=== PATIENT | male | born 1985 | race Caucasian/White ===

== ENCOUNTER 2024-12-05 19:02 | Emergency (ER) | payer OTHER, SELFPAY ==
[2024-12-05 19:09] VITALS: BP 149/98
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
== END 2024-12-05 22:23 | disposition home or self-care (01) ==
LOC: EMR 19:02
PROVIDERS: EMERGENCY PHYSICIAN Emergency Medicine; FAMILY PHYSICIAN Physician Assistant
DX: S80.01XA Contusion of right knee, initial encounter (principal); V49.9XXA Car occupant (driver) (passenger) injured in unspecified traffic accident, initial encounter; I10 Essential (primary) hypertension; Z86.2 Personal history of diseases of the blood and blood-forming organs and certain disorders involving the immune mechanism; Z79.01 Long term (current) use of anticoagulants; Z87.891 Personal history of nicotine dependence
CPT/HCPCS: 99283; 29505; 73564

== ENCOUNTER 2025-05-15 21:08 | Emergency (ER) | payer OTHER, SELFPAY ==
[2025-05-15 21:11] VITALS: BP 127/90
--- NOTE | 2025-05-15 23:48 | ED.GENMED ---
History of Present Illness
General
Chief Complaint: Skin Surface Trauma
Source: patient
Exam Limitations: none
Time Seen by Provider: 05/15/25 22:58
Nursing documentation reviewed up to this point in time: agreed with
History of Present Illness
History of Present Illness:
Note:
CHIEF COMPLAINT(S)
Laceration to the hand.
HISTORY OF PRESENT ILLNESS
The patient is a 39-year-old male with pmh of GERD, clotting disorder/PE on eliquis, ADHD, who presents with a laceration to the finger. The injury occurred while the patient was applying force to remove a hitch from the back of the car. He
described it as being stuck, causing his hand to snag. The patient reports that there was a lot of bleeding at the time but now he is comfortable and pain free. Currently, the patient does not report significant pain, but experiences a tingling
sensation intermittently which seems to have resolved. He notes having pressure applied to the site, which did not cause discomfort, implying that any significant pain was likely mitigated. The patient describes a past experience where stitches were
required after a similar hand injury. He did not fall. He denies wrist pain, elbow pain. He received a tetanus shot within the past 5 years.
SOCIAL DETERMINANTS AFFECTING HEALTH
The patient has a history of engaging in activities such as hunting that may predispose him to similar injuries, as stated by his long history of engaging in such activities.
PHYSICAL EXAM
General: Alert, no acute distress.
Skin: 1.5 cm angulated laceration noted to the anterior aspect of the right 5th digit. No foreign body, tendon involvement. Brisk capillary refill.
Cardiac: Regular rate
Pulm: Normal respiratory effort
MSK: No visual bony deformity. No tenderness to palpation noted over the digits and bones of the right hand and wrist. Full range of motion. FDS and FDP tendon testing intact.
Neurological: Sensation intact. CNII--XII intact.
PLAN
1. Suturing of the hand laceration with instructions for removal within a week to 10 days, either at this facility or at the patients family doctors office.
2. Initiate a course of antibiotics to prevent infection of the wound.
3. Instruct the patient to keep the wound dry for 24 hours, after which it may be gently washed with mild soap and warm water.
4. Advise against heavy use of the hand and any strenuous activity for at least a week to promote healing.
5. Follow-up care instructions provided with precautions for wound management to avoid complications.
DIFFERENTIAL DIAGNOSIS
The Differential Diagnosis includes, in no particular order and is not limited to:
1. Simple laceration
2. Tendon injury
3. Nerve injury
4. Infection (prevention thereof with antibiotic administration)
5. Hematoma formation
6. Foreign body retention
7. Contusion
8. Fracture (though not confirmed by x-ray)
9. Ligamentous injury
10. Vascular injury
Disposition:
SUMMARY OF ENCOUNTER
The patient, a 39-year-old male, presented to the emergency department with a laceration on his right hand, sustained while attempting to open the back of a car. On examination, a 1.5-centimeter laceration was observed on the R fifth finger, with no
evidence of a foreign body or tendon involvement. The laceration was sutured in the emergency department. X-ray shows no foreign body or fracture. The wound was thoroughly irrigated prior to suturing.
PLAN
The patient is instructed to follow up with his primary care provider for suture removal and repeat examination. Prophylactic antibiotic treatment was discussed to prevent infection, and the patient is advised to keep the wound dry for 24 hours
before gently washing it.
PATIENT EDUCATION AND COUNSELING
The patient was educated on wound care, including keeping the wound dry for 24 hours and avoiding heavy use of the hand for at least a week to promote healing.
FOLLOW-UP INSTRUCTIONS
The patient is instructed to follow up with his primary care provider for suture removal and further evaluation within a week to 10 days.
MEDICATION RECONCILIATION
A prophylactic course of antibiotics was started to prevent infection.
MEDICAL DECISION MAKING
- Number and Complexity of Problems Addressed: Chronic conditions affecting care.
-Data:
Category 1: Reviewed emergency department records and examined the injury. No imaging was deemed necessary given the unlikelihood of foreign body presence or tendon injury.
Category 2: Clinical information was obtained through examination and patient history as no other sources were consulted.
Finger laceration
Past History
Past History
ED Past Medical History: GERD, HTN, Psychiatric (Anxiety) and Other (Questionable subsegmental PE on previous CT of the chest, chronically maintained on Eliquis)
ED Past Surgical History: None
Patient has exhibited threatening behavior?: No
Social History
Tobacco: Former smoker
Alcohol: None
Drug: Marijuana
Personal: Single
Living: with family
Employment: Not employed
Family History
Family History: Other (Father with hypertension, mother with anxiety, HTN)
Phy Exam
Physical Exam
Physical Exam:
see hpi
Course
Orders/Labs/Results
Orders:
Orders
05/15/25 21:13
CR Finger(s)/thumb Min 2 Vw Rt Urgent
Reason For Exam: laceration/foreign body
Vital Signs
Initial and Last Documented VS:
Initial Vital Signs
Temp Pulse Resp BP Pulse Ox
98.3 F 86 20 127/90 98
05/15/25 21:11 05/15/25 21:11 05/15/25 21:11 05/15/25 21:11 05/15/25 21:11
Last Documented Vital Signs
Temp Pulse Resp BP Pulse Ox
98.3 F 86 20 127/90 98
05/15/25 21:11 05/15/25 21:11 05/15/25 21:11 05/15/25 21:11 05/15/25 23:49
Procedures
Laceration Closure
Right Fifth Finger:
Status of Wound: clean
Size of Wound in cm: 1.5
Description of Wound Edges: flap-well vascularized
Preparation: cleaned with saline and cleaned with Betadine
Anesthesia: 1% Lidocaine
Revision/Debridement: routine- no revision
Wound exploration: explored to base- no FB
Type of Closure: single layer closure
Skin Closure Material: 4-0 prolene
Number of sutures: 4
*Pulse Oximetry
SaO2: 98
Oxygen Mode of Delivery: Room air
Patient hypoxic: no
*Critical Care Note
Total Time (30-74mins, 75-104mins- exclusive of procedures): Not Applicable
ED Attending Note
-
Portions of this chart may have been created with voice recognition software.� Occasional wrong word or��sound alike� substitutions may have occurred due to the inherent limitations of voice recognition software.
Discharge Plan
Departure
Patient Disposition: Home (Routine Discharge)
Date of Disposition: 05/15/25
Time of Disposition: 23:53
Patient with high blood pressure during this ER visit?: Yes
Condition: Good
Discharge Problem:
Finger laceration
Instructions: Wound Care (DC), Laceration Repair With Stitches (DC), BLOOD PRESSURE
Prescriptions:
New
cephalexin 500 mg capsule
500 mg PO TID 5 Days Qty: 15 0RF
No Action
clonazepam 0.5 MG tablet
1 mg PO TID
isosorbide mononitrate 30 MG tablet extended release 24 hr
30 mg PO DAILY
buspirone 10 MG tablet
30 mg PO BID
Eliquis 5 MG tablet
5 mg PO BID
Patient Comments:
going to baby aspirin starting tomorrow
venlafaxine 37.5 MG tablet
187.5 mg PO DAILY
esomeprazole magnesium [Nexium] 20 MG capsule,delayed release(DR/EC)
20 mg PO DAILY
gabapentin 800 mg Tablet
800 mg PO TID
hydroxyzine pamoate [Vistaril] 50 mg Capsule
1 - 2 mg PO PRN PRN (Reason: anxiety)
Referrals:
NONE,* [Family Provider, Internal Medicine]
Activity Restrictions/Additional Instructions:
For infection prophylaxis, Keflex has been sent to your pharmacy. Please take 1 tablet 3 times daily for 5 days. Please keep wound dry for 24 hours. After 24 hours, you can remove dressing and gently clean wound with warm soapy water. Please do
not use hydrogen peroxide or alcohol over the wound.
You can report to your primary care provider, emergency department, urgent care to have your stitches removed in 10 days.
You can take Tylenol as needed for pain.
PLEASE RETURN TO ER SHOULD SHE DEVELOP CHEST PAIN, SHORTNESS OF BREATH, PURULENT DRAINAGE FROM THE WOUND, SURROUNDING REDNESS OR INCREASING PAIN TO THE WOUND, INABILITY TO FLEX or extend the finger, loss of sensation, fevers or chills, or any other
signs or symptoms worrisome to you
Interventions
Interventions:
*Risk Screen - Suicide Last Done: 05/15/25 23:22
*General Assessment Last Done: 05/15/25 21:11
*Neglect/Abuse Screening Last Done: 05/15/25 23:22
*ED- Fall Risk Assessment Last Done: 05/15/25 23:17
*ED COVID-19 Vaccine History Last Done: 05/15/25 23:17
*ED Influenza Vaccine History Last Done: 05/15/25 23:17
*Nursing Disposition Last Done: 05/16/25 00:03
ED-Skin Assessment Last Done: 05/15/25 23:17
Discharge Date and Time
Discharge Date/Time: 05/16/25 00:04
Print Language: YORUBA
== END 2025-05-16 00:04 | disposition home or self-care (01) ==
LOC: EMR 21:08
PROVIDERS: EMERGENCY PHYSICIAN Emergency Medicine
DX: S61.216A Laceration without foreign body of right little finger without damage to nail, initial encounter (principal); W22.8XXA Striking against or struck by other objects, initial encounter; I10 Essential (primary) hypertension; Z86.711 Personal history of pulmonary embolism; Z79.01 Long term (current) use of anticoagulants; Z87.891 Personal history of nicotine dependence
CPT/HCPCS: 12001; 99283; 73140

== ENCOUNTER 2025-05-22 15:46 | Emergency (ER) | payer OTHER, SELFPAY ==
[2025-05-22 16:01] VITALS: BP 149/98
--- NOTE | 2025-05-22 16:56 | ED.SKININJ ---
HPI-Injury
General
Chief Complaint: Wound Check/Suture Removal
Time Seen by Provider: 05/22/25 16:46
Nursing documentation reviewed up to this point in time: agreed with
History of Present Illness-Injury
Initial Injury comments:
39-year-old male presents to the ER for suture removal after injury that occurred 1 week ago. Patient states that he did not get prescription for antibiotic filled for a few days after his ER visit. He has 1 more day of antibiotic to take. He
denies fevers. He reports mild discomfort in his finger, no drainage.
Past History
Past History
ED Past Medical History: GERD, HTN, Psychiatric (Anxiety) and Other (Questionable subsegmental PE on previous CT of the chest, chronically maintained on Eliquis)
ED Past Surgical History: None
Patient has exhibited threatening behavior?: No
Social History
Tobacco: Former smoker
Alcohol: None
Drug: Marijuana
Personal: Single
Living: with family
Employment: Not employed
Family History
Family History: Other (Father with hypertension, mother with anxiety, HTN)
Review of Systems
Review of Systems
Allergies reviewed?: Yes
Phy Exam
Physical Exam
Physical Exam:
Patient is awake, alert, appears no acute distress, poor eye contact, right fifth digit exam reveals healing laceration with sutures intact, there is scant crust present in the laceration, there is mild surrounding blanching erythema without
induration or proximal streaking, no pain on passive range of motion of the right fifth digit, brisk cap refill present to the distal digit, GCS is 15
Course
Vital Signs
Initial and Last Documented VS:
Initial Vital Signs
Temp Pulse Resp BP Pulse Ox
98.5 F 96 18 149/98 96
05/22/25 16:01 05/22/25 16:01 05/22/25 16:01 05/22/25 16:01 05/22/25 16:01
Last Documented Vital Signs
Temp Pulse Resp BP Pulse Ox
98.5 F 96 18 149/98 96
05/22/25 16:01 05/22/25 16:01 05/22/25 16:01 05/22/25 16:01 05/22/25 16:01
Procedures
Other
Indication for procedure:: Scheduled suture removal
Procedure completed by: Myself
Additional Procedure:
4 Prolene sutures were removed from laceration in right fifth digit without difficulty
*Pulse Oximetry
SaO2: 96
Oxygen Mode of Delivery: Room air
Patient hypoxic: no
*Critical Care Note
Total Time (30-74mins, 75-104mins- exclusive of procedures): Not Applicable
Update Note
Update Note:
Patient tolerated suture removal well. I discussed with patient normal anticipated healing course and continued wound care instructions. Area does seem slightly more red than I would anticipate, however no gross evidence for infection. Given
patient only has 1 more day of antibiotics, will give additional 3 days of antibiotics for coverage. I discussed with patient strict return precautions. He expressed understanding of discharge plan and has no questions prior to leaving the
department
ED Attending Note
-
Portions of this chart may have been created with voice recognition software.� Occasional wrong word or��sound alike� substitutions may have occurred due to the inherent limitations of voice recognition software.
Discharge Plan
Departure
Patient Disposition: Home (Routine Discharge)
Date of Disposition: 05/22/25
Time of Disposition: 16:51
Patient with high blood pressure during this ER visit?: No
Discharge Problem:
Encounter for removal of sutures
Instructions: Wound care - ED (DC)
Prescriptions:
New
cephalexin 500 mg capsule
500 mg PO Q8H Qty: 10 0RF
No Action
clonazepam 0.5 MG tablet
1 mg PO TID
isosorbide mononitrate 30 MG tablet extended release 24 hr
30 mg PO DAILY
buspirone 10 MG tablet
30 mg PO BID
Eliquis 5 MG tablet
5 mg PO BID
Patient Comments:
going to baby aspirin starting tomorrow
venlafaxine 37.5 MG tablet
187.5 mg PO DAILY
esomeprazole magnesium [Nexium] 20 MG capsule,delayed release(DR/EC)
20 mg PO DAILY
gabapentin 800 mg Tablet
800 mg PO TID
hydroxyzine pamoate [Vistaril] 50 mg Capsule
1 - 2 mg PO PRN PRN (Reason: anxiety)
cephalexin 500 mg capsule
500 mg PO TID 5 Days Qty: 15 0RF
Activity Restrictions/Additional Instructions:
Complete course of antibiotics as prescribed. Please wash hand and area of wound twice daily with soap and water. Otherwise keep clean and dry. Cover lightly with a Band-Aid when you are out and about, otherwise may leave open when you are at
home. Please return to the ER for any concerns including but not limited to worsening pain, fever, any drainage that looks like pus
Interventions
Interventions:
*Risk Screen - Suicide Last Done: 05/22/25 16:01
*General Assessment Last Done: 05/22/25 16:01
*Neglect/Abuse Screening Last Done: 05/22/25 16:01
Discharge Date and Time
Print Language: [email or web address]
== END 2025-05-22 17:18 | disposition home or self-care (01) ==
LOC: EMR 15:46
PROVIDERS: EMERGENCY PHYSICIAN Emergency Medicine; FAMILY PHYSICIAN Physician Assistant Medical
DX: S61.216D Laceration without foreign body of right little finger without damage to nail, subsequent encounter (principal); X58.XXXD Exposure to other specified factors, subsequent encounter; I10 Essential (primary) hypertension; Z87.891 Personal history of nicotine dependence
CPT/HCPCS: 99281